=== PATIENT | female | born 1975 | race Native Hawaiian/Other Pacific Islander ===

== ENCOUNTER 2016-11-21 13:24 | Outpatient (CLI) | payer OTHER ==
[2016-11-22 14:04] LABS: HEP BS AB CONCENTRATION 17.91 mIU/ml (()); HEPATITIS B SURFACE AB Reactive (Non React)
== END 2016-11-21 13:25 | disposition home or self-care (01) ==
LOC: LABOP 13:24 → EDSTATUS 13:30
DX: Z02.1 Encounter for pre-employment examination (principal)